=== PATIENT | male | born 1965 | race Caucasian/White ===

== ENCOUNTER 2025-05-14 21:14 | Emergency (ER) | payer BC ==
[2025-05-14] MEDS: Oxymetazoline 0.05% Nasal Spray 30 ML Bottle NAS ONE (21:58)
== END 2025-05-14 23:01 | disposition home or self-care (01) ==
LOC: JP.ED 21:14
DX: R04.0 Epistaxis (principal); Z88.2 Allergy status to sulfonamides
CPT/HCPCS: 30901; 99283; A9270